=== PATIENT | female | born 1975 | race American Indian/Alaskan Native ===

== ENCOUNTER 2016-07-30 10:30 | Inpatient (IN) | payer OTHER ==
[~2016-07-30] VITALS: Ht 172.7 cm; Wt 85.8 kg
[2016-07-30 11:29] LABS: BLOOD UREA NITROGEN 5 mg/dL (7-18)
[2016-07-30] MEDS ORDERED: OMNIPAQUE 350 MG/ML, 100ML BOTTLE ONE (16:43)
[2016-07-30] MEDS ORDERED: GADOBUTROL 10 MMOL/10 ML PFS ONE (18:17)
[2016-07-30] MEDS ORDERED: HEPARIN wt. based STROKE protocol MC PRN (19:00)
[2016-07-30] MEDS ORDERED: HEPARIN 25,000 UNITS/500ML PMX 500 ML ONE (19:06)
[2016-07-30] MEDS: HEPARIN 25,000 UNITS/500ML PMX 500 ML IV PRN (19:29)
[2016-07-30] MEDS ORDERED: ONDANSETRON 2MG/ML, 2ML IVPush ONE (20:00)
[2016-07-30] MEDS ORDERED: HYDROmorphone 1 MG/ML, 1ML IVPush PRN (20:00)
[2016-07-30] MEDS ORDERED: BISACODYL 10 MG SUPP PR PRN (20:00)
[2016-07-30] MEDS ORDERED: LABETALOL 5MG/ML, 20ML IVPush PRN (20:00)
[2016-07-30] MEDS ORDERED: ONDANSETRON 2MG/ML, 2ML IVPush PRN (20:00)
[2016-07-30] MEDS ORDERED: morphine SULFATE 10 MG/ML, 1ML IVPush PRN (20:00)
[2016-07-30] MEDS ORDERED: POLYETHYLENE GLYCOL 17 GM PACKET PO PRN (20:00)
[2016-07-30] MEDS ORDERED: DOCUSATE 100 MG CAPSULE PO PRN (20:00)
[2016-07-30] MEDS ORDERED: ACETAMINOPHEN 325 MG TABLET ONE (20:41)
[2016-07-30] MEDS: ACETAMINOPHEN 325 MG TABLET PO PRN (21:23)
[2016-07-30] MEDS ORDERED: ASPIRIN 325 MG TABLET PO ONE (21:56)
[2016-07-30] MEDS ORDERED: ASPIRIN 325 MG TABLET ONE (22:00)
[2016-07-30 23:52] VITALS: BP 134/70
[2016-07-31] MEDS: HEPARIN 25,000 UNITS/500ML PMX 500 ML IV PRN ×2 (00:50→00:51)
[2016-07-31] MEDS: ACETAMINOPHEN 325 MG TABLET PO PRN ×5 (01:29→21:53)
[2016-07-31 04:00] VITALS: BP 108/62
[2016-07-31 04:55] LABS: ASPARTATE AMINO TRANSFERASE 16 U/L (15-37); BLOOD UREA NITROGEN 5 mg/dL (7-18)
[2016-07-31] MEDS: ASPIRIN 81 MG TABLET EC PO SCH (10:35)
[2016-07-31 13:42] VITALS: BP 114/75
[2016-07-31 19:17] VITALS: BP 107/66
[2016-08-01 01:24] VITALS: BP 113/69
[2016-08-01] MEDS: ACETAMINOPHEN 325 MG TABLET PO PRN (03:11)
[2016-08-01] MEDS: ASPIRIN 81 MG TABLET EC PO SCH (05:47)
[2016-08-01 08:03] VITALS: BP 112/68
[2016-08-01] MEDS ORDERED: IBUP200T5 PO (12:59)
[2016-08-01] MEDS ORDERED: ASPI-621 PO (12:59)
== END 2016-08-01 13:39 | disposition home or self-care (01) | DRG 301 ==
LOC: ED 19:34 → EDIP 19:50 → CCU 23:14 → 4WST 07-31 13:30
PROVIDERS: ADMIT Internal Medicine; ATTEND Internal Medicine
DX: I77.74 Dissection of vertebral artery (principal); M54.2 Cervicalgia; E86.0 Dehydration; M79.1 Myalgia; H53.8 Other visual disturbances; M25.512 Pain in left shoulder; Z79.82 Long term (current) use of aspirin; Z83.3 Family history of diabetes mellitus; Z90.49 Acquired absence of other specified parts of digestive tract; Z82.49 Family history of ischemic heart disease and other diseases of the circulatory system
CPT/HCPCS: 36415; 70450; 70498; 70549; 80048; 80053; 80061; 81003; 82040; 83036; 83735; 84439; 84443; 85025; 87081; 93005; 99291; A9585; J1644; Q9967

== ENCOUNTER 2016-08-01 21:30 | Emergency (ER) | payer OTHER ==
[~2016-08-01] VITALS: Ht 172.7 cm; Wt 86.1 kg
[~2016-08-01 21:30] MED LIST: ASPI-621 PO; IBUP200T5 PO
[2016-08-01 22:27] LABS: BLOOD UREA NITROGEN 5 mg/dL (7-18)
[2016-08-01] MEDS ORDERED: KETOROLAC 30 MG/1 ML ONE (22:28)
[2016-08-01] MEDS ORDERED: DIAZEPAM 5 MG TABLET ONE (22:28)
[2016-08-01] MEDS ORDERED: DIAZEPAM 5 MG TABLET PO ONE (22:30)
[2016-08-01] MEDS ORDERED: KETOROLAC 30 MG/1 ML IM ONE (22:30)
[2016-08-01 23:06] VITALS: BP 120/62
== END 2016-08-01 23:53 | disposition home or self-care (01) ==
LOC: ED 21:47
DX: S16.1XXA Strain of muscle, fascia and tendon at neck level, initial encounter (principal); M54.12 Radiculopathy, cervical region; M54.81 Occipital neuralgia; X58.XXXA Exposure to other specified factors, initial encounter; Y93.9 Activity, unspecified; Y99.9 Unspecified external cause status; Y92.89 Other specified places as the place of occurrence of the external cause
CPT/HCPCS: 36415; 80048; 82040; 85025; 96372; 99284; J1885